=== PATIENT | male | born 1945 | race Caucasian/White ===

== ENCOUNTER → 2016-08-30 | Outpatient (CLI) | payer OTHER, BC ==
[2016-08-30 07:43] LABS: CREATININE, URINE 92.5 MG/DL (15-500)
[2016-08-30 07:44] LABS: BASOPHILS # (AUTO) 0.03 10*3/UL; BASOPHILS % (AUTO) 0.5 % (0-1); EOSINOPHILS % (AUTO) 5.6 % (0-8); HEMATOCRIT 46.3 % (42.0-52.0); HEMOGLOBIN 15.1 g/dL (14.0-18.0); IMM GRAN % (AUTO) 0.5 % (0-5); IMM GRAN# (AUTO) 0.03 10*3/UL; LYMPHOCYTES # (AUTO) 1.89 10*3/uL; LYMPHOCYTES % (AUTO) 30.4 % (10-50); MEAN CORPUSCULAR HEMOGLOBIN 27.2 PG (27-31); MEAN CORPUSCULAR HGB CONC 32.6 g/dL (33-37); MEAN PLATELET VOLUME 10.2 FL (7.4-12.2); MONOCYTES # (AUTO) 0.68 10*3/UL (0.3-0.8); NEUTROPHILS # (AUTO) 3.23 10*3/UL; RDW COEFFICIENT OF VARIATION 15.8 % (11.5-14.5); RED BLOOD COUNT 5.56 10^6/uL (4.70-6.10); WHITE BLOOD COUNT 6.21 10^3/uL (4.8-10.8)
[2016-08-30 07:45] LABS: PLATELET MORPHOLOGY COMMENT NORMAL MORPHOLOGY (NORM)
[2016-08-30 07:50] LABS: ASPARTATE AMINO TRANSFERASE 32 IU/L (21-57); BILIRUBIN,TOTAL 0.6 mg/dL (0.3-1.2); BLOOD UREA NITROGEN 25 mg/dL (7-22); BUN/CREATININE RATIO 22.72 (6-20); CALCIUM 9.2 mg/dL (8.7-10.7); CHLORIDE 103 meq/L (98-112); CREATININE 1.1 mg/dL (0.70-1.50); EST GLOMERULAR FILTRATION > 60 (>60 ml/min/1.73m(2)); GLUCOSE 126 mg/dL (78-110); HDL CHOLESTEROL 37 mg/dL (40-150); POTASSIUM 4.8 meq/L (3.8-5.2); SODIUM 138 meq/L (135-145); TOTAL PROTEIN 7.7 g/dL (6.1-8.0); TRIGLYCERIDES 232 mg/dL (44-200); URIC ACID 6.6 mg/dl (3.8-8.5)
[2016-08-30 07:53] LABS: HEMOGLOBIN A1C 6.71 % (4.2-6.0); MEAN BLOOD GLUCOSE (CALC) 137.443 mg/dL
[2016-08-30 09:17] LABS: FREE T4 (FREE THYROXINE) 1.04 ng/dL (0.93-1.71)
== END ==
LOC: LAB 07:16
PROVIDERS: ATTEND Internal Medicine
DX: I10 Essential (primary) hypertension (principal); E11.9 Type 2 diabetes mellitus without complications; E78.5 Hyperlipidemia, unspecified; M10.9 Gout, unspecified; I25.10 Atherosclerotic heart disease of native coronary artery without angina pectoris; N40.0 Benign prostatic hyperplasia without lower urinary tract symptoms; E66.9 Obesity, unspecified
CPT/HCPCS: 36415; 80053; 80061; 82043; 82550; 83036; 84439; 84443; 84550; 85025; 99214; G0463

== ENCOUNTER → 2016-11-27 | Outpatient (CLI) | payer OTHER, BC ==
[2016-11-27 07:26] LABS: HEMOGLOBIN A1C 6.77 % (4.2-6.0)
[2016-11-27 07:26] LABS: BLOOD UREA NITROGEN 30 mg/dL (7-22); BUN/CREATININE RATIO 27.27 (6-20); CALCIUM 9.1 mg/dL (8.7-10.7); EST GLOMERULAR FILTRATION > 60 (>60 ml/min/1.73m(2)); SERUM ALBUMIN 4.1 g/dL (3.5-4.8)
[2016-11-27 07:29] LABS: CREATININE, URINE 225.1 MG/DL (15-500)
[2016-11-27 07:50] LABS: CHOL/HDL RATIO 3.43 RATIO (0-4.0); LDL CHOLESTEROL,CALCULATED 53.6 mg/dL
== END ==
LOC: LAB 06:57
PROVIDERS: ATTEND Internal Medicine
DX: E11.9 Type 2 diabetes mellitus without complications (principal); E78.5 Hyperlipidemia, unspecified; I10 Essential (primary) hypertension
CPT/HCPCS: 36415; 80053; 80061; 82043; 82550; 83036